=== PATIENT | female | born 1985 | race Caucasian/White ===

== ENCOUNTER 2017-06-10 00:02 | Inpatient (IN) | payer BC ==
[~2017-06-10 00:02] MED LIST: Carboprost Tromethamine 250 MCG/1 ML Amp IM PRN; Lactated Ringers 500 ML IV ONE; Lidocaine 1% 30 ML SDV INJECT PRN; Methylergonovine 0.2 MG/1 ML Amp IM PRN; Misoprostol 400 MCG (4 X 100 MCG TAB) RECTAL PRN; Nalbuphine 20 MG/1 ML Amp IM ONE; Sodium Chloride 0.9% 10 ML Syringe FLUSH PRN; Zolpidem 5 MG Tab PO PRN
[2017-06-10] MEDS: Misoprostol 25 MCG (1/4 of 100 MCG) Tab VAG PRN ×3 (01:26→12:05)
[2017-06-10] MEDS: Lactated Ringers 1,000 ML IV SCH ×2 (05:23→18:44)
[2017-06-10] MEDS: Labetalol 100 MG Tab PO SCH ×2 (09:11→21:12)
[2017-06-10] MEDS: Oxytocin/Normal Saline 30 UNIT/500 ML BAG IV SCH (16:31)
[2017-06-10] MEDS ORDERED: hydrOXYzine HCl 25 MG Tab PO PRN (20:54)
--- NOTE | 2017-06-11 00:16 | PN ---
DATE: 06/10/2017 SUBJECTIVE: Hospital day #1, approximately 21 hours after admission for induction of labor due to chronic hypertension with gradually increasing blood pressures controlled with oral medications. The patient has had preeclampsia labs performed and those were essentially negative and ruled out for preeclampsia. In recent weeks, she has had some gradually increasing blood pressures and a few days prior to admission, labetalol dose was doubled. Denies any overt symptoms of preeclampsia at this time and overnight had Cytotec and throughout the day she ended with a total of 3 doses of Cytotec and nurses reported cervix was 1 cm dilated, 70% effaced, much softer, remained posterior and high, so she was switched over to IV Pitocin which is currently running at 14. The patient is reporting contractions that are mild in quality. She knows they are there, but they are not very painful. She is starting to realize what a long process this is and how frustrating that can be. Otherwise, no new concerns or complaints. PHYSICAL EXAMINATION: Vital Signs: Temperature is 97.9, pulse 80, blood pressure 132/68 prior 133/82, respiratory rate of 20. General: She appears comfortable, tired from the long induction process. Cervix 2 cm dilated, 50% effaced, -3 station. Bag of water is intact and tense. ASSESSMENT: 1. A 37 and 6/7 weeks' intrauterine . 2. 1 para 0. 3. Chronic hypertension controlled on oral medications with negative preeclampsia labs. 4. Gastroesophageal reflux disease. 5. Anemia of . 6. Overweight. 7. History of recurrent cold sores. 8. History of spotting in the first trimester. PLAN: The patient will continue on Pitocin at this time. Once she gets it to 20, anticipating that we will decrease it to 10 for a while and then start going back up again to 30. Hopefully, we will get more of regular contractions with increased cervical change. Anticipate artificial rupture of membranes when time is appropriate and we will be trying for vaginal delivery understanding that complications may arise and become warranted. The patient and her 's questions have been answered. I ordered some Vistaril for tonight so that she can get some sleep if needed and they are happy with the plan as it stands. [facility] /[id number] MELO
[2017-06-11] MEDS: Ondansetron 4 MG/2 ML SDV IV PRN ×2 (02:53→07:07)
[2017-06-11] MEDS ORDERED: Nalbuphine 20 MG/1 ML Amp IM ONE ×2 (03:45→06:05)
[2017-06-11] MEDS: Lactated Ringers 1,000 ML IV SCH ×2 (05:44→07:25)
--- NOTE | 2017-06-11 07:58 | PN ---
DATE: 06/11/2017 TIME: 1:25 a.m. SUBJECTIVE/OBJECTIVE: The patient is reporting contractions have gotten a little bit stronger. She is having difficulty finding a comfortable position to try to go ahead and rest and at this time, monitoring strips were reviewed and baseline heart rate continues at about 135 to 140 beats per minute with moderate gexk-af-xaov variability and accelerations noted. [place] has not been picking up contractions recently because she has been sleeping on her side. Cervix assessed and not very much changed since last check I would say. Cervix is a tight 3 cm, 60% effaced, -3 station and very posterior still. scalp electrode was used to rupture the amniotic fluid sac and help us leaf size picker the heart tracing better, and she tolerated that procedure well and the fluid revealed to be clear. ASSESSMENT: Essentially unchanged from last. PLAN: Pitocin had been down at 10 for a period of time and now we are increasing it again and that is going to go up to 12. Hopefully between the artificial rupture and increasing Pitocin, we will be having onset of labor and its active stages soon. The patient and her 's questions have been answered at this time. [facility] /[id number] MELO
[2017-06-11] MEDS ORDERED: EPINEPHrine 1 MG/ML SDV ONE ×2 (08:35→16:00)
[2017-06-11] MEDS ORDERED: fentaNYL 100 MCG/2 ML SDV ONE (08:35)
--- NOTE | 2017-06-11 09:02 | PN ---
DATE: 06/11/2017 SUBJECTIVE: The patient continues to feel painful contractions and has been tolerating, noticed some bloody show. Nurses called me to come back and reassess the strip due to a variable deceleration down into the 60s. They turned her on to her left side bolusing IV fluids and initiated some oxygen. OBJECTIVE: Upon my arrival at the unit, there are about four variable decelerations noted on the tracing. Lowest is down to the 60s, others are 70s to 90s, and recovered quickly. TOCO is not tracing very well, so actual placement of those is hard to determine. There are some markings for the contractions, and they tend to be in variable position as well. heart tones currently at a baseline of 125 beats per minute with moderate xfki-da-rnzy variability. Just prior to her last contraction, baby did have a large acceleration. At that time, I checked her cervix, and she is 7 to 8 cm dilated, 95% effaced, and now a 0 station. Some caput is starting to form. Cervix is stretchy between contractions. Nurse has already placed a scalp electrode which is tracing well. IUPC was placed for initiation of amnioinfusion to see if we can correct the variables and still proceed with plans for vaginal delivery, which the patient tolerated quite well. ASSESSMENT: 1. A 38 and 0/7 weeks' intrauterine . 2. Chronic hypertension, being induced for increasing blood pressures but still controlled with oral medications. 3. Obesity. 4. Category II heart tracing, requiring intervention. PLAN: IUPC placed without complications as noted above. Amnioinfusion will be initiated. Pitocin has been turned off, and the patient is also receiving oxygen. Baby seems to be recovering well with that, having accelerations and variability is moderate. Contractions spaced out every 5 to 6 minutes at this time, now that we are tracing with IUPC. Discussed with she and her the potential for need to go to section and those risks including risk of infection; plan for preoperative antibiotics; potential for blood loss, requiring blood transfusion that may need to be initiated while in the operating room; risk of injury to the baby, including potential for the baby to need additional resuscitation as is more strenuous on them; potential for injury to the mother, internal organs, and adjacent structures including but not limited to bowel, bladder, ureters, fallopian tubes, ovaries, uterus, any other adjacent structures, and those would be repaired as discovered; potential for complications for mother and/or baby that would require transfer to a tertiary care center; and remote risk of . A verbal consent was obtained. We will have them sign paper consent charts for verification. Continue to monitor closely and actively manage. Hope that we can proceed with a vaginal delivery. However, we will elect for section if that becomes a safer route. [facility] /[id number] MTDD
--- NOTE | 2017-06-11 09:25 | PCM.PRNOTE ---
- Free Text/Narrative Note: Requested to provide analgesia to full term patient in severe pain. Upon entering the room, patient is supine in bed complaining of severe abdominal pain and discomfort. Procedure was discussed with patient including adverse outcomes and expectations. Pt consented to analgesia, SAB/IT. Pt placed into a sitting position. Landmarks for SAB/IT were identified and marked. Back was prepped with betadine x3. A sterile, transparent, fenestrated drape was applied. Excess betadine was removed. Using 3 mL of a 1% lidocaine solution, a skin wheel was placed at the L3/L4 interspace. A 24 ga (4 inch) Pencan spinal needle was inserted until positive for CSF. Negative for heme or paresthesias. Injected fentanyl 20 mcg, sufentanil 10 mcg, and 10.5 mg of a 0.75% bupivacaine solution with an epi wash. Pt was placed left lateral position for approximately 20 minutes. There were zero complications or adverse outcomes. Will continue to monitor.
[2017-06-11] MEDS: Oxytocin/Normal Saline 30 UNIT/500 ML BAG IV SCH (13:42)
[2017-06-11] MEDS ORDERED: Simethicone 80 MG Tab.Chew PO PRN (14:05)
[2017-06-11] MEDS ORDERED: Benzocaine/Menthol 20%-0.5% Spray 56 GM Canister TOP PRN (14:05)
[2017-06-11] MEDS: Ibuprofen 800 MG Tab PO PRN ×2 (14:21→22:06)
[2017-06-11] MEDS ORDERED: fentaNYL 100 MCG/2 ML SDV ITHECAL ONE (16:00)
[2017-06-11] MEDS: Labetalol 100 MG Tab PO SCH (21:33)
[2017-06-11] MEDS: Docusate Sodium 100 MG Cap PO PRN (22:05)
--- NOTE | 2017-06-12 03:19 | DEL ---
DATE: 06/11/2017 PREPROCEDURE DIAGNOSES: 1. A 38 and 0/7 week based on 7-week ultrasound. 2. Chronic hypertension, controlled with medications and increasing over the past couple of weeks. 3. Blood type A positive, rubella immune, group B strep negative. 4. Anemia of . 5. Overweight. 6. First trimester spotting. 7. Gastroesophageal reflux disease, chronic. 8. Recurrent cold sores. POSTPROCEDURE DIAGNOSES: 1. A 38 and 0/7 week based on 7-week ultrasound. 2. Chronic hypertension, controlled with medications and increasing over the past couple of weeks. 3. Blood type A positive, rubella immune, group B strep negative. 4. Anemia of . 5. Overweight. 6. First trimester spotting. 7. Gastroesophageal reflux disease, chronic. 8. Recurrent cold sores. 9. Status post vacuum-assisted vaginal delivery. 10.Arrest of descent in the 2nd stage. 11.Asynclitic presentation. BRIEF HISTORY: A 31-year-old female with the above-listed diagnoses, admitted on the day prior to delivery for Cytotec induction which was carried out with 3 doses of Cytotec for cervical ripening and eventually transitioned over to Pitocin. Approximately 15 hours prior to actual delivery, she had artificial rupture of membranes using scalp electrode, and labor continued to be actively managed. She also did require an intrauterine pressure catheter for further monitoring and amnio infusion to correct variable decelerations. Ultimately reached complete and started pushing. Maternal pushing effort was excellent. However, we were making very limited descent and when she got to +2 station, maternal fatigue was felt to be an issue as well as lack of adequate progress. Therefore, a suction cup vacuum was called for and applied after appropriate consent was obtained by the patient and her . Discussed that she still had adequate anesthesia from her intrathecal. Her bladder had just been emptied for 150 mL of clear urine. Nursing staff were both available in the room, OR staff was available in-house for emergency exit planning. Predetermined number of pop offs was 3, Kiwi vacuum was selected with normal pressure settings to be kept at 100 in the yellow zone between contractions and in the 400 to 600 zone which was the green zone for pulls. Discussed potential injury to the baby including, but not limited to, scalp lacerations, hematoma in the scalp, and also deeper within the brain as potential problems, increased risk of shoulder dystocia and other complications, potential increased risk for vaginal lacerations and tears and other maternal trauma. The patient was in agreement and we were ready to proceed. PROCEDURE IN DETAIL: With the patient in the Tobias' position and with adequate strength pushes, Kiwi vacuum applied and used for approximately 25 minutes and essentially arrest of descent was noted with the baby at outlet position and maternal pushing efforts were not helping things progress any further. At that point, I had 2 pop offs with the soft cup Kiwi and decided to switch to a low-profile OmniCup and in the process of applying it, the baby must have shifted because with the next contraction, baby delivered before the 2nd style of suction cup was even brought up into the green zone and no additional pulls were needed. Infant was in VIKA position with a significant asynclitic appearance to the scalp on the posterior right side. Loose nuchal cord was noted around the neck and around each arm accounting for the variables that she had earlier in labor which responded well to amnio infusion. Baby was dried and stimulated. Loose nuchal cord and body cords were then untangled and baby placed up on mother's abdomen. A minimum 45 second delay was performed before doubly clamping the three-vessel umbilical cord and cutting it. Cord blood sample was then obtained and handed off to the nurse. Placenta then delivered by gentle cord traction and concomitant uterine massage. Labia and vagina inspected and there was a third-degree laceration noted which was repaired with 3-0 Vicryl in the routine fashion. The repair site and rectum were examined and appropriate. COMPLICATIONS: None. ESTIMATED BLOOD LOSS: 400 mL. DISPOSITION: Mother and baby to remain in this room for initiation of . FINDINGS: Viable female , weighing 3000 g, 6 pounds 10 ounces. Length 19 - 3/4 inches. scores of 9 and 10. Significant asynclitic caput and molding noted on the baby's head. Feel that this had changed with switching out of the styles of suction cups allowing for vaginal delivery. [facility] /[id number] MELO
[2017-06-12] MEDS: Labetalol 100 MG Tab PO SCH ×3 (04:10→21:04)
[2017-06-12] MEDS: Acetaminophen 325 MG Tab PO PRN ×4 (05:02→21:05)
[2017-06-12] MEDS: Ibuprofen 800 MG Tab PO PRN ×2 (05:43→16:40)
[2017-06-12] MEDS: Prenatal Multivitamin with Calcium/Folic Acid/Iron Tab PO SCH (09:32)
[2017-06-12] MEDS: Docusate Sodium 100 MG Cap PO PRN ×2 (16:41→21:05)
--- NOTE | 2017-06-12 22:15 | PN ---
DATE: 06/12/2017 TIME OF EXAM: Approximately 8:15 a.m. SUBJECTIVE: A 31-year-old 1, now para 1 female status post vacuum- assisted vaginal delivery with third-degree laceration repair performed yesterday. She has chronic hypertension. Denies any symptoms at this time of elevated blood pressure issues and is doing quite well. Since delivery, she has been ambulating and tolerating regular diet. She has not had a bowel movement but is voiding without difficulties. is requiring some assistance from the nurses, but overall she is starting to figure things out. Acid reflux continues to be symptomatic. Bleeding has been about like menses with the associated cramping. OBJECTIVE: General: Pleasant female. Vital Signs: Pulse of 72, temperature is 96.3, blood pressure 133/76, respiratory rate of 16. Heart: Regular without obvious murmur. Lungs: Clear to auscultation bilaterally. Abdomen: Soft and nontender. Fundus is firm and below the umbilicus. Extremities: Trace edema bilaterally more so on the right likely due to prior ankle sprain. LABORATORY DATA: Hemoglobin is down to 9.5 from a previous 11.2, platelets of 205. ASSESSMENT: 1. 1, para 1, status post vacuum-assisted vaginal delivery with third- degree laceration repair. 2. Anemia of . 3. Anemia of acute blood loss. 4. Gastroesophageal reflux disease. 5. Mildly overweight. 6. Chronic hypertension, currently well controlled. PLAN: Anticipate normal care and discharge home tomorrow. Mother's labetalol dose has been decreased back to her baseline, and we will make adjustments as needed if she starts to have elevated blood pressures again. Her questions have been answered at this time. [facility] /[id number]
[2017-06-13] MEDS: Ibuprofen 800 MG Tab PO PRN ×2 (00:47→09:18)
[2017-06-13] MEDS: Acetaminophen 325 MG Tab PO PRN (05:09)
[2017-06-13] MEDS: Prenatal Multivitamin with Calcium/Folic Acid/Iron Tab PO SCH (09:17)
[2017-06-13] MEDS: Labetalol 100 MG Tab PO SCH (09:17)
[2017-06-13] MEDS: Docusate Sodium 100 MG Cap PO PRN (09:18)
--- NOTE | 2017-06-14 21:01 | DISCH ---
ADMITTING DIAGNOSES: 1. A 36 and 6/7 weeks' intrauterine by 7-week ultrasound. 2. 1, para 0. 3. Chronic hypertension, controlled with medications, but increased medication need over the past week. 4. Anemia of . 5. Overweight. 6. First trimester spotting. 7. Gastroesophageal reflux disease, chronic. 8. Recurrent cold sores. 9. Blood type A positive, rubella immune, and group B strep negative. DISCHARGE DIAGNOSES: 1. Status post vacuum-assisted vaginal delivery at 38 and 0/7 weeks' gestation. 2. 1, now para 1-0-0-1. 3. Chronic hypertension, controlled with medications, but increased medication need over the past week. 4. Anemia of . 5. Overweight. 6. First trimester spotting. 7. Gastroesophageal reflux disease, chronic. 8. Recurrent cold sores. 9. Blood type A positive, rubella immune, and group B strep negative. 10.Anemia of acute blood loss. 11.Third-degree laceration repair. BRIEF HISTORY: A 31-year-old female, admitted with the above listed diagnoses and induction of labor because of her increasing gestational hypertension with increased medication need. She had three doses of Cytotec and was then transitioned over to Pitocin, and artificial rupture of membranes performed, and needed intrauterine pressure catheter monitoring with amnio infusion because of variable decelerations. She then went on to a vacuum-assisted vaginal delivery without other complications. She did push for about an hour and a half because the baby was asynclitic and once the baby turned, delivered quite readily. Anticipate that if she had not had an asynclitic baby, her labor would have been shortened by at least 2 hours and her pushing by an hour. She did have a third-degree laceration, which was repaired without difficulties. She tolerated delivery quite well. Please see the admission history and physical and delivery note for those details. HOSPITAL COURSE: Hospital course has been good. Since delivery, she was placed back on her typical dose of labetalol and doses held as needed if blood pressures were lower. She is ambulating, tolerating regular diet, her baby, voiding without difficulties, has not had a bowel movement. Bleeding has been similar to a menses or less. She denies acute concerns at this time and feels comfortable with discharge today. DISCHARGE CONDITION: Good. Vital signs: Temperature is 98.1, pulse 91, blood pressure 119/71, respirations 16, O2 saturations 98% on room air. Heart: Regular without murmur. Lungs: Clear bilaterally. Abdomen: Soft without masses. Fundus, firm and below the umbilicus. Extremities: Trace edema. No erythema or tenderness noted. LABORATORY DATA: Admission hemoglobin 11.2, discharge 9.5; admission platelets 234, discharge 205. Preeclampsia labs were within normal limits, specifically, protein creatinine ratio of 0.10. Urinalysis negative. AST and ALT normal. Uric acid 3.9. BUN of 7. DISPOSITION: Home with family. FOLLOWUP: Routine 6-week exam. Sooner if any problems or concerns. The patient will continue to check her blood pressures at least once daily and notify the office if she has any complications. She has been educated that preeclampsia can develop as well and she will be aware of those symptoms and present if she needs evaluation. DISCHARGE MEDICATIONS: The patient may continue her: 1. Protonix 40 mg daily. 2. Labetalol 100 mg twice daily. 3. Denavir as needed for recurrent cold sores. 4. B12 supplementation. 5. Iron 325 mg twice daily. 6. Tylenol 650 mg every 6 hours as needed. 7. Ibuprofen 600 mg every 6 hours as needed. 8. Colace 100 mg twice daily as needed. INSTRUCTIONS: Routine post-vaginal care instructions provided and preeclampsia teaching reviewed. Her questions were answered. [facility] /[id number] MTDD
== END 2017-06-13 10:45 | disposition home or self-care (01) | DRG 542 ==
LOC: DL.OBCHECK 00:02 → DL.OB 00:03 → OBSVTOIN 06-11 12:27
PROVIDERS: ADMIT Family Medicine; ATTEND Family Medicine
PROC: 10D07Z6 Extraction of Products of Conception, Vacuum, Via Natural or Artificial Opening (ICD-10-PCS; principal; 2017-06-11)
PROC: 3E0P7VZ Introduction of Hormone into Female Reproductive, Via Natural or Artificial Opening (ICD-10-PCS; 2017-06-11)
PROC: 10907ZC Drainage of Amniotic Fluid, Therapeutic from Products of Conception, Via Natural or Artificial Opening (ICD-10-PCS; 2017-06-11)
PROC: 3E033VJ Introduction of Other Hormone into Peripheral Vein, Percutaneous Approach (ICD-10-PCS; 2017-06-11)
PROC: 0DQR0ZZ Repair Anal Sphincter, Open Approach (ICD-10-PCS; 2017-06-11)
PROC: 00HU33Z Insertion of Infusion Device into Spinal Canal, Percutaneous Approach (ICD-10-PCS; 2017-06-11)
PROC: 3E0R3BZ Introduction of Anesthetic Agent into Spinal Canal, Percutaneous Approach (ICD-10-PCS; 2017-06-11)
DX: O16.4 Unspecified maternal hypertension, complicating childbirth (principal); O99.02 Anemia complicating childbirth; D64.9 Anemia, unspecified; Z3A.38 38 weeks gestation of pregnancy; Z37.0 Single live birth; O75.89 Other specified complications of labor and delivery; E66.3 Overweight; K21.9 Gastro-esophageal reflux disease without esophagitis; O70.20 Third degree perineal laceration during delivery, unspecified
CPT/HCPCS: 36415; 59025; 59409; 81003; 82570; 84156; 84450; 84460; 84520; 84550; 85027; A9270-GY; J0171; J2300; J2405; J2590; J3010; J7050; J7120

== ENCOUNTER 2019-10-07 07:35 | Inpatient (IN) | payer BC ==
[2019-10-07] MEDS ORDERED: Lidocaine 1% 30 ML SDV INJECT PRN (09:40)
[2019-10-07] MEDS ORDERED: Carboprost Tromethamine 250 MCG/1 ML Amp IM PRN (09:40)
[2019-10-07] MEDS ORDERED: Misoprostol 400 MCG (4 X 100 MCG TAB) RECTAL PRN (09:40)
[2019-10-07] MEDS ORDERED: Acetaminophen 325 MG Tab PO PRN (09:40)
[2019-10-07] MEDS ORDERED: Sodium Chloride 0.9% 10 ML Syringe FLUSH PRN (09:40)
[2019-10-07] MEDS ORDERED: Methylergonovine 0.2 MG/1 ML Amp IM PRN (09:40)
[2019-10-07] MEDS ORDERED: Tranexamic Acid 1,000 MG in Sodium Chloride 0.9% 100 ML IV PRN (09:40)
[2019-10-07] MEDS ORDERED: Lactated Ringers 1,000 ML IV ONE (09:40)
[2019-10-07] MEDS ORDERED: fentaNYL 100 MCG/2 ML SDV IVPUSH PRN (09:40)
[2019-10-07] MEDS ORDERED: Oxytocin/Normal Saline 30 UNIT/500 ML BAG IV SCH (09:45)
[2019-10-07] MEDS: Oxytocin/Normal Saline 30 UNIT/500 ML BAG IV SCH (10:29)
[2019-10-07] MEDS: Lactated Ringers 1,000 ML IV SCH (10:29)
[2019-10-07] MEDS ORDERED: hydrOXYzine HCl 25 MG Tab PO ONE (21:33)
[2019-10-07] MEDS: Misoprostol 25 MCG (1/4 of 100 MCG) Tab VAG PRN (22:32)
--- NOTE | 2019-10-07 22:39 | PN ---
DATE: 10/07/2019 TIME: Approximately 9:30 p.m. SUBJECTIVE: The patient has been feeling her contractions and reports that they have been maintaining about the same frequency. No leakage of fluid or vaginal bleeding. movement has been good. No symptoms of preeclampsia. Understandably, a little frustrated that her cervix is not making more significant cervical change and labor induction is not progressing as we had anticipated. OBJECTIVE: Vital Signs: Temperature is 97.8, pulse 75, blood pressure 136/81, respiratory rate of 16. heart tones currently tracking at 140 beats per minute baseline. Moderate dcjw-jx-lomq variability. Accelerations are noted. [place] is tracing contractions every 2-1/2 to 3 minutes. Pitocin is running at 11. Cervix unchanged from this afternoon and more difficult to reach than it was this morning. Nurse reports she was able to feel it more recently and was only about 2.5 cm dilated, thick, long, very high, very posterior. On my exam, I cannot get all the way through the cervix at this time. Does feel like it is probably closer to 50%, much softer than it was before, very posterior, and ballotable. ASSESSMENT: 1. 38-0/7 weeks' intrauterine . 2. Chronic hypertension. 3. Multigravida of advanced maternal age. 4. Obesity. 5. Induction of labor, not progressing as rapidly as expected at this time. PLAN: 1. Discussed with the patient and her a few different options. One would be to go home, bring her back tomorrow or the next day to re-attempt induction at that time. 2. To continue to try to push with the Pitocin, but since we have not gotten much progress so far, I do not anticipate that we will be able to progress much further without being able to rupture the bag of water. 3. Turn off the Pitocin, let her have a small break, and then resume induction with cervical ripening agent of Cytotec. Last delivery, she had 3 doses of Cytotec and I was able to rupture her bag and she delivered about 12 hours after that and she was ruptured when she was a good 3.5 cm dilated and -2 station, which is better than what she is right now. Would also give her some Vistaril to help her get some sleep tonight so that she has more energy and stamina when it comes time to labor and push tomorrow. After a discussion and her and her 's questions were answered, they agreed with the plan of switching over to Cytotec and trying to get some rest through the night when able and I agree that this is the best choice and recommendation. [facility] /[id number]
[2019-10-08] MEDS: Misoprostol 25 MCG (1/4 of 100 MCG) Tab VAG PRN ×6 (02:32→23:25)
[2019-10-08] MEDS: Ondansetron 4 MG/2 ML SDV IVPUSH PRN (02:39)
--- NOTE | 2019-10-08 08:18 | HP ---
CHIEF COMPLAINT: Induction of labor due to chronic hypertension, suspicion of macrosomic infant, and a history of a vacuum delivery with a third-degree laceration repair and advanced maternal age. SUBJECTIVE: A 34-year-old female presents today with her , Andrew, for a planned induction of labor because of several different risk factors. One of our more pressing issues is that her last baby was only 6 pounds 10 ounces; needed to be delivered via vacuum assistance because of arrest of descent after an hour and a half of pushing, 25 minutes of vacuum; and was asynclitic. This baby is estimated to be at least 2 pounds heavier with the last estimated weight performed on 09/25/2019 when the baby was measuring 3433 g at the 93-1/2 percentile. The has been well managed. We did have fewer visits than typical because of the COVID pandemic and limiting time in the clinic. Medication exposures included Protonix, labetalol, Claritin, vitamin B12, and vitamins. At this time, she is denying any chest pain, shortness of breath, preeclampsia symptoms, leakage of fluid, or vaginal bleeding. movement has been good. She understands that with an expected larger baby, there is increased risk of needing a section with this delivery. She also understands that the use of cervical ripening agents is to be expected and that these can cause complications as well, such as tetanic contractions and distress, leading to urgent or emergent section, and also understands that if the continues to progress longer, the baby will also continue to grow, and she is concerned that she would end up needing a C- section if the baby gets too large, and all of these different factors have been discussed with her over the course of her 3rd trimester. DIAGNOSES: 1. Advanced maternal age. 2. High-risk . 3. Blood type A positive. 4. Rubella immune. 5. Chronic hypertension. 6. Group B streptococcus negative. 7. Obesity. 8. Carpal tunnel syndrome. 9. Gastroesophageal reflux. 10.Family history of antiphospholipid antibody syndrome. 11.History of recurrent cold sores. 12.Family history of ischemic heart disease. LABORATORIES: Blood type is A positive. Antibody screen was positive; however, further testing actually returned negative. Rubella is immune. Syphilis is negative. Hepatitis B is negative. HIV is negative. Gonorrhea and chlamydia are negative. TSH was normal at 1.97 in the 1st trimester. Hepatitis C is nonreactive. Wet prep is negative. Group B strep is negative. Glucose tolerance test is borderline at 139. She has not had any glucosuria or other signs of diabetes this . Blood pressures have been well controlled on labetalol 100 mg b.i.d. PAST MEDICAL HISTORY: In addition to those things already listed as specific to , she has also had some allergic rhinitis; B12 neuropathy; bulging of a cervical intervertebral disk, mild; and TMJ disease. SURGERY HISTORY: Laparoscopic cholecystectomy in 2003, tonsillectomy and adenoidectomy in 2005, vaginal colposcopy in 03/2008, and wisdom teeth extraction. FAMILY HISTORY: Mother with antiphospholipid antibody syndrome and a history of miscarriages. Father with coronary artery disease, first [place] at age 45 or 46; high cholesterol; asthma; hypertension; heart attack; and prediabetes. Sister with Hodgkin lymphoma at age 21. Maternal grandmother and had dementia. Maternal grandfather, diabetes and stroke. Maternal grandmother, Alzheimer disease. Paternal grandfather, glaucoma. SOCIAL HISTORY: The patient is to Andrew. He works for [employer]. 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 Their daughter, Nidhi, was born in May 2017, and life has been stable and good. OBSTETRICAL HISTORY: Delivered on 06/11/2017, 38 weeks' gestation via a vacuum- assisted vaginal delivery a 3000 g, which is 6 pounds 9.8 ounces, female infant, stage I 15 hours and stage II an hour and a half, third-degree laceration repaired, induction was with Cytotec and then artificial rupture, internal monitoring with an intrauterine pressure catheter, and vacuum was required because of a lack of descent due to being asynclitic; with that , she was felt to have gestational hypertension, and that was later determined to be chronic hypertension. REVIEW OF SYSTEMS: Pertinent positives and negatives are as listed above under the history of present illness. Otherwise, a 12-system review is negative. OBJECTIVE: Vital Signs: Temperature is 97.5, pulse 75, blood pressure 120/65, and respiratory rate of 16. HEENT: Unremarkable. Heart: Regular without murmur. Lungs: Clear to auscultation bilaterally. Abdomen: Gravid, soft, and nontender. Baby palpates vertex. Contractions are about every 2 to 4 minutes, lasting 60 to 80 seconds, mild intensity. heart tones 125 beats per minute at baseline. Moderate [id number] variability and accelerations are noted. Category I tracing. Cervix is 3 cm dilated, 25% effaced, very high, ballotable, very difficult to reach, and immediate consistency overall Augustine score of 4. Extremities: No edema, erythema, or tenderness is noted. LABORATORY: Hemoglobin is 11.9 and platelets 240. COVID is negative. ASSESSMENT: 1. 38-0/7 weeks by last menstrual period and consistent with a 21-week ultrasound. 2. Chronic hypertension. 3. Advanced maternal age. 4. History of vacuum delivery with a third-degree laceration. 5. Esophageal reflux. 6. Obesity. 7. Rubella immune, group B streptococcus negative, and blood type A positive. 8. Recurrent cold sore history. 9. Suspicion for a larger infant than her last, concerning for increased risk of section or repeat vacuum delivery. PLAN: The patient has been admitted to the hospital, and Cytotec was used in prior , and the patient felt like that took a very long time, and I feel that things are favorable for using low-dose Pitocin turned up to 6 and then keep it there for at least 6 hours for cervical ripening and then anticipate that we will be able to perform artificial rupture of membranes and anticipate vaginal delivery. The patient has been informed of the risk of induction as well as the potential for section, and her questions were answered, and she is ready to proceed at this time. [facility] /[id number]
[2019-10-09] MEDS ORDERED: diphenhydrAMINE 25 MG Tab PO STA (00:02)
[2019-10-09] MEDS: Misoprostol 25 MCG (1/4 of 100 MCG) Tab VAG PRN (03:40)
[2019-10-09] MEDS: Lactated Ringers 1,000 ML IV SCH ×2 (08:50→11:22)
[2019-10-09] MEDS: Oxytocin/Normal Saline 30 UNIT/500 ML BAG IV SCH (08:51)
[2019-10-09] MEDS: Ondansetron 4 MG/2 ML SDV IVPUSH PRN (11:20)
[2019-10-09] MEDS ORDERED: fentaNYL 100 MCG/2 ML SDV ONE (11:32)
[2019-10-09] MEDS ORDERED: EPINEPHrine 1 MG/1 ML Amp ONE (11:32)
[2019-10-09] MEDS ORDERED: Sodium Bicarbonate 4.2% 2.5 MEQ/5 ML SDV ONE (11:33)
--- NOTE | 2019-10-09 11:56 | PCM.SN.2 ---
- Free Text/Narrative Note: Intrathecal.Sitting position, sterile prep and drape. 1% lidocaine w bicarb for skinwheal to L2 L3 interspace. Introducer, 24 ga Pencan x 1. Pos CSF, neg heme, neg parasthesia. 0.1 ml pf 1;1000 epi, 15 mcg pf sufenta, 35 mcg pf fentanyl, 0.4 ml pf NS and 6 mg of 0.75% pf bupivacaine injected after CSF aspiration. Pt to L lateral position. Procedure time 1130 to 1200
[2019-10-09] MEDS ORDERED: Benzocaine/Menthol 20%-0.5% Spray 56 GM Canister TOP PRN (13:08)
[2019-10-09] MEDS ORDERED: Simethicone 80 MG Tab.Chew PO PRN (13:08)
[2019-10-09] MEDS ORDERED: fentaNYL 100 MCG/2 ML SDV ITHECAL ONE (14:29)
[2019-10-09] MEDS: Ibuprofen 800 MG Tab PO PRN (15:45)
[2019-10-09] MEDS: Docusate Sodium 100 MG Cap PO PRN (20:51)
[2019-10-09] MEDS: Acetaminophen 325 MG Tab PO PRN (20:51)
--- NOTE | 2019-10-09 22:53 | DEL ---
DATE: 10/09/2019 PREPROCEDURE DIAGNOSES: 1. 38-2/7 weeks' gestation by last menstrual period. 2. 2, para 1-0-0-1. 3. Hypertension. 4. Obesity. 5. Blood type A positive, rubella immune, group B strep negative. 6. Bilateral carpal tunnel syndrome. 7. Gastroesophageal reflux. 8. Advanced maternal age. 9. History of vacuum delivery with third-degree repair. 10.Long induction to get to cervical ripening, rapid labor after 4 cm, and artificial rupture. POSTPROCEDURE DIAGNOSES: 1. 38-2/7 weeks' gestation by last menstrual period. 2. 2, now para 2-0-0-2. 3. Hypertension. 4. Obesity. 5. Blood type A positive, rubella immune, group B strep negative. 6. Bilateral carpal tunnel syndrome. 7. Gastroesophageal reflux. 8. Advanced maternal age. 9. History of vacuum delivery with third-degree repair. 10.Long induction to get to cervical ripening, rapid labor after 4 cm, and artificial rupture. 11.Status post spontaneous vaginal delivery. 12.Second-degree laceration repair. 13.Right anterior labial laceration not repaired. BRIEF HISTORY: A 34-year-old female with the above-listed diagnoses presented to the hospital on 10/07/2019, for induction of labor which was first attempted with low-dose Pitocin for cervical ripening and then we had gotten the Pitocin up to 11 and then late in the night. She was not making any significant cervical change nor was the ripening very effective, so the Pitocin was turned off and we ended up using 8 doses of Cytotec over the next 30 or so hours, and then artificial rupture of membranes was performed this morning at 7:30 a.m. when she was 3 cm dilated and 75% effaced. About 2-1/2 hours after that, she was 4 cm, 75%, and -2, and had a dose of fentanyl. About an hour after that, she was 6 cm, and had her intrathecal 20 minutes after that, and was complete at 11:50 a.m. Once she was set up for delivery, she only pushed through 2 contractions and had a successful delivery as below. DETAILS: With the patient in dorsal lithotomy position, delivered a viable male infant over intact perineum in the VIKA position. was dried, stimulated, and you could hear a lot of secretions in his throat, so those were suctioned out and baby placed up on mother's abdomen. He was noted to have a large terminal meconium stool. After the cord stopped pulsating, it was doubly clamped and cut, and cord blood sample obtained. Placenta then delivered by gentle cord traction and concomitant uterine massage after about 6 minutes. Then, the vagina was inspected and she had a second-degree laceration with extension to the left labia, which was repaired with 3-0 Vicryl in the usual fashion. She also has a right anterior labial laceration that was hemostatic and did not need repair. COMPLICATIONS: None. ESTIMATED BLOOD LOSS: 450 mL. FINDINGS: Viable male infant, scores of 9 and 9, weight 8 pounds 9 ounces, 3870 g. DISPOSITION: Mother and baby to stay in the room and initiate . [facility] /[id number]
[2019-10-10] MEDS: Ibuprofen 800 MG Tab PO PRN ×2 (04:09→14:18)
[2019-10-10] MEDS: Acetaminophen 325 MG Tab PO PRN (05:49)
[2019-10-10] MEDS ORDERED: Ferrous Sulfate 325 MG Tab PO SCH (08:00)
[2019-10-10] MEDS ORDERED: Prenatal Multivitamin with Calcium/Folic Acid/Iron Tab PO SCH (09:00)
[2019-10-10] MEDS: Docusate Sodium 100 MG Cap PO PRN (09:08)
--- NOTE | 2019-10-12 08:34 | DISCH ---
DISCHARGE DIAGNOSES: 1. A 34-year-old, G2, now P2-0-0-2. 2. 38-2/7-weeks gestation. 3. Induced vaginal delivery with second-degree laceration. 4. A viable male infant "José Miguel" weighing 8 pounds 9 ounces/3870 g with score of 9 and 9, born 10/09/2020 at 12:23 p.m. 5. Blood type A positive. 6. Rubella immune. 7. Group B strep negative. 8. History of chronic hypertension. 9. Advanced maternal age. 10.History of increased BMI. 11.Gastroesophageal reflux disease. 12.Bilateral carpal tunnel syndrome. 13.Past history of vacuum-assisted vaginal delivery with a third degree repair, not recurrent. 14.Prolonged induction, successful. 15. mother. 16. anemia. FINDINGS: This delightful 34-year-old, G2, P1-0-0-1, presented as directed for induction of labor. Cervix was ripened with low dose Pitocin followed by repeated doses of Cytotec, then induction was carried out with Pitocin and artificial rupture of membranes. She subsequently went on into an effective labor pattern and delivered a viable male infant as noted without complication. This viable male infant weighed 8 pounds 9 ounces/3870 g as noted with score of 9 and 9 and was born on 10/09/2020 at 12:[address] Gresham. Second-degree laceration was repaired without difficulty. Estimated blood loss was 450. Her hospital course since delivery has been uneventful. She has remained afebrile with stable vital signs. Her fundus has remained firm and her flow has been within normal limits. She is voiding, ambulating, and eating without difficulty. She is and bottle-feeding both and the baby is doing well. The patient has requested early discharge home on her day #1, and since both she and the baby are stable, we will honor that request. She will be discharged home today on day #1. Recheck lab work shows her hemoglobin is down to 9.6 from 11.9 on admit. Her white count has remained in the normal range at 9.0. Her platelets also are 190. COVID was negative on admit and was not repeated. CONDITION AT DISCHARGE: Good. She will follow up for a 6-week exam. DISCHARGE MEDICATIONS: Include her vitamins daily, iron supplement as desired [id number], Ibuprofen or Tylenol p.r.n. FOLLOWUP: She will follow up with Dr. Gresham with any problems or for a 6-week checkup. Other routine instructions and orders. All of their questions were answered and family is very happy with their care and plan. [facility] /[id number]
== END 2019-10-10 14:30 | disposition home or self-care (01) | DRG 560 ==
LOC: DL.OB 07:35 → OBSVTOIN 10-09 12:23
PROVIDERS: ADMIT Family Medicine; ATTEND Family Medicine
PROC: 10E0XZZ Delivery of Products of Conception, External Approach (ICD-10-PCS; principal; 2019-10-09)
PROC: 10907ZC Drainage of Amniotic Fluid, Therapeutic from Products of Conception, Via Natural or Artificial Opening (ICD-10-PCS; 2019-10-09)
PROC: 3E0P7VZ Introduction of Hormone into Female Reproductive, Via Natural or Artificial Opening (ICD-10-PCS; 2019-10-09)
PROC: 3E033VJ Introduction of Other Hormone into Peripheral Vein, Percutaneous Approach (ICD-10-PCS; 2019-10-09)
PROC: 0KQM0ZZ Repair Perineum Muscle, Open Approach (ICD-10-PCS; 2019-10-09)
PROC: 3E0R3BZ Introduction of Anesthetic Agent into Spinal Canal, Percutaneous Approach (ICD-10-PCS; 2019-10-09)
DX: O10.92 Unspecified pre-existing hypertension complicating childbirth (principal); O99.62 Diseases of the digestive system complicating childbirth; O70.1 Second degree perineal laceration during delivery; Z3A.38 38 weeks gestation of pregnancy; Z37.0 Single live birth; K21.9 Gastro-esophageal reflux disease without esophagitis; O99.214 Obesity complicating childbirth; E66.9 Obesity, unspecified; Z11.59 Encounter for screening for other viral diseases
CPT/HCPCS: 36415; 59409; 85027; A9270-GY; J2405; J2590; J3010; J7120; U0002